=== PATIENT | male | born 2000 | race Caucasian/White ===

== ENCOUNTER 2022-08-30 18:58 | Emergency (ER) | payer OTHER ==
[~2022-08-30] VITALS: Ht 175.2 cm; Wt 74.8 kg
[~2022-08-30 18:58] MED LIST: ATARAX25 MG PO; AUGMENTIN ES-6100 ML PO; BACTRIM PEDIAT200 ML PO; CORTISPORIN SUS10 ML OT; KEFLEX250 MG/5 M PO; MOTRIN400 MG PO; NKHM; PEDIALYTE 1001000 ML PO; PHENERGAN6.25 MG/5 PO; PREDNISONE20 MG PO; TYLENOL W/CODEI1 TA2 PO
== END 2022-08-30 20:46 | disposition home or self-care (01) ==
LOC: ED 18:58
DX: S01.01XA Laceration without foreign body of scalp, initial encounter (principal); Z90.89 Acquired absence of other organs; V29.99XA Rider (driver) (passenger) of other motorcycle injured in unspecified traffic accident, initial encounter; Y93.89 Activity, other specified; Y92.89 Other specified places as the place of occurrence of the external cause; Y99.8 Other external cause status